=== PATIENT | female | born 1985 | race Caucasian/White ===

== ENCOUNTER 2019-07-04 13:01 | Emergency (ER) | payer OTHER ==
--- OUTSIDE RECORDS SUMMARY | 2019-07-04 14:13 | XMS REPORT | Continuity of Care Document ---
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 Social History Type Date Description Comments Sex Unknown Tobacco Use Start: Unknown Never Smoked Cigarettes Smoking Status Reviewed: 04/14/18 Never Smoked Cigarettes ETOH Use Occasionally consumes alcohol Tobacco Use Start: Unknown Patient has never smoked Recreational Drug Use Denies Drug Use Exercise Type/Frequency Lifts weights 5 times a week Allergies, Adverse Reactions, Alerts Active Allergies Reaction Severity Comments Date Garlic Preparation Abdominal pain Severe 05/03/2019 Wheat Gluten Extract 05/03/2019 Inactive Allergies NKDA 04/13/2018 Medications Active Medications SIG Qnty Indications Ordering Provider Date Progesterone Micronized 1 by mouth Unknown 200mg daily Capsules Probiotic Unknown 90Billion Iu Capsules Vitamin B-Complex 1 by mouth Unknown 400 Tablets every day Vitamin D Unknown (Ergocalciferol) 5000Unit Capsules Magnesium Oxide -MG 1 by mouth Unknown Supplement every day 900mg Tablets Ibuprofen as needed Unknown 200mg Capsules Methylphenidate Gisell Wolff MD Hydrochloride ER 18mg Tablets ER 24HR Medications Administered in Office Medication SIG Qnty Indications Ordering Provider Date HPV,Unspecified Unknown 10/26/2007 Injection HPV,Unspecified Unknown 12/15/2006 Injection HPV,Unspecified Unknown 10/04/2006 Injection Meningococcal,Unspecified Unknown 10/30/2002 Injection Immunizations CPT Code Status Date Vaccine Lot # [id number] Given 03/14/2019 Influenza Virus Vaccine, Quadrivalent, Split, Preservative Free 25734 Given 10/27/2017 Tdap - Tetanus/Diptheria/Acellular Pertussis 97729 Given 06/03/2009 Flu Vaccine 73641 Given 06/03/2009 Administration Swine Flu Shot 92925 Given 10/04/2006 Hepatitis A Vaccine Adult Dosage 77005 Given 12/11/2005 Tdap - Tetanus/Diptheria/Acellular Pertussis 10722 Given 04/22/2005 Flu Vaccine 03067 Given 01/10/1999 Hep B Pediatric/Adolescent 17739 Given 03/20/1997 Hep B Pediatric/Adolescent 05874 Given 12/29/1996 Hep B Pediatric/Adolescent 72450 Given 11/24/1989 Measles Mumps And Rubella MMR 57298 Given 05/03/1987 Varicella (Chicken Pox) Immunization 08223 Given 05/29/1986 Hemophilus Influenza B 85434 Given 01/23/1986 Measles Mumps And Rubella MMR Vital Signs Date Vital Result Comment 05/17/2019 3:07pm Height 67 inches 5'7" Weight 141.25 lb Heart Rate 56 /min BP Systolic 125 mmHg BP Diastolic 78 mmHg Body Temperature 97.7 F O2 % BldC Oximetry 100 % BMI (Body Mass Index) 22.1 kg/m2 01/23/2019 12:00am Height 67 inches Weight 140.00 lb BMI (Body Mass Index) 21.9 kg/m2 Results Test Acquired Date Facility Test Result H/L Range Note GC/chlamydi 01/24/2019 N2N/CCD Import chlamydia negative negative a Rna trachomatis [facility] neisseria gonorrhoeae (GC) [facility] negative negative Homocysteine 01/23/2019 N2N/CCD Import homocysteine 7 mcmol/L [Mass/volume] in Serum or Plasma 25-Hydroxyvitamin D 01/20/2019 N2N/CCD Import vitamin D total > 120.0 High 20-50 [Mass/volume] in 25(oh) Serum or Plas Cobalamin (Vitamin 01/20/2019 N2N/CCD Import vitamin B12 645 pg/mL 180- 91 B12) [Mass/volume] 4 in Blood Comprehensive 01/20/2019 N2N/CCD Import sodium 140 mmol/L 135-14 metabolic 2000 5 panel - Serum or Plas potassium 4.5 mmol/L 3.5-5.0 chloride 108 mmol/L 101-111 Co2 carbon dioxide 28 mmol/L 22-32 anion gap 4 mmol/L 2-11 glucose 91 mg/dL 70-100 blood urea nitrogen 12 mg/dL 6-24 creatinine 0.94 mg/dL 0.51-0.95 BUN/creatinine ratio 12.8 8-20 calcium 9.0 mg/dL 8.6-10.3 total protein 6.3 g/dL Low 6.4-8.9 albumin 4.0 g/dL 3.2-5.2 globulin 2.3 g/dL 2-4 albumin/globulin ratio 1.7 1-3 total bilirubin 0.70 mg/dL 0.2-1.0 alkaline phosphatase 52 U/L 34-104 Alt 19 U/L 7-52 Ast 23 U/L 13-39 eGFR non- 68.2 >60 eGFR 82.5 >60 Lipid 1996 panel - Serum or 01/20/2019 N2N/CCD Import triglycerides 62 mg/ dL Plasma cholesterol 167 mg/dL HDL cholesterol 67.5 mg/dL Cholesterol in LDL [Mass/volume] in Serum or Plasma 87 mg/dL CBC W Auto 01/20/2019 N2N/CCD Import white blood 4.1 10_3/uL 3.5-10.8 Differential panel - count Blood red blood count 4.31 10_6_/uL 3.70-4.87 hemoglobin 13.2 g/dL 12.0-16.0 hematocrit 39 % 35-47 mean corpuscular volume 91 fL 80-97 mean corpuscular hemoglobin 31 pg 27-31 mean corpuscular HGB conc 34 g/dL 31-36 red cell distribution width 13 % 10-15 platelet count 166 10_3/uL 150-450 mean platelet volume 10.7 fL High 7.4-10.4 abs neutrophils 1.6 10_3/uL 1.5-7.7 abs lymphocytes 1.9 10_3/uL 1.0-4.8 abs monocytes 0.5 10_3/uL 0-0.8 abs eosinophils 0.1 10_3/uL 0-0.6 abs basophils 0.0 10_3/uL 0-0.2 abs nucleated RBC 0.0 10_3/uL granulocyte % 39.1 % lymphocyte % 45.4 % monocyte % 11.2 % eosinophil % 3.2 % basophil % 1.1 % nucleated red blood cells % 0.1 GC/chlamydia Rna 11/22/2018 N2N/CCD Import chlamydia positive Abnormal negative trachomatis Rna neisseria gonorrhoeae (GC) Rna negative negative Trichomonas 11/22/2018 N2N/CCD Import trichomonas negative negative vaginalis rRNA vaginalis result [Presence] in Unspecifi Procedures Description No Information Available Medical Devices Description No Information Available Encounters Description No Information Available Assessments Description No Information Available Plan of Treatment No Information Available Functional Status Description No Information Available Mental Status Description No Information Available Referrals Description No Information Available
[2019-07-04 14:23] VITALS: BP 118/81
--- NOTE | 2019-07-04 14:26 | UC ---
FLU HPI - HPI Summary HPI Summary: 33 yo female presents with flu-like symptoms. She tells me that for the past 4 days she has felt nauseous with a decreased appetite. For the last 2 days has had subjective fever, fatigue, body aches, and dry cough. She has not been taking anything OTC for her symptoms. 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 Denies rash, SOB, chest pain, abdominal pain, vomiting, diarrhea, dysuria. - History of Current Complaint Chief Complaint: UCGeneralIllness Stated Complaint: BODYACHES FEVER NAUSEA HEADACHE Time Seen by Provider: 07/04/19 14:25 Hx Obtained From: Patient Hx Last Menstrual Period: Onset/Duration: Sudden Onset Severity Currently: Moderate Severity Initially: Moderate Pain Intensity: 5 Pain Scale Used: 0-10 Numeric - Allergy/Home Medications Allergies/Adverse Reactions: Allergies Allergy/AdvReac Type Severity Reaction Status Date / Time No Known Allergies Allergy Verified 07/04/19 14:23 Home Medications: Home Medications Methylphenidate TAB* [Ritalin TAB*] 10 mg PO DAILY 07/04/19 [History Confirmed 07/04/19] Progesterone, Micronized [Progesterone] 200 mg PO DAILY 07/04/19 [History Confirmed 07/04/19] PMH/Surg Hx/FS Hx/Imm Hx - Additional Past Medical History Additional PMH: ADHD - Surgical History Surgical History: None - Family History Known Family History: Positive: Hypertension - Social History Lives: With Family Alcohol Use: Weekly Substance Use Type: None Smoking Status (MU): Never Smoked Tobacco Review of Systems All Other Systems Reviewed And Are Negative: No Constitutional: Positive: Fever, Chills, Fatigue, Other - Body aches Skin: Positive: Negative Eyes: Positive: Negative ENT: Positive: Negative Respiratory: Positive: Cough Cardiovascular: Positive: Negative Gastrointestinal: Positive: Nausea Genitourinary: Positive: Negative Neurological/Mental Status: Positive: Negative Psychological: Positive: Negative Physical Exam - Summary Physical Exam Summary: GENERAL: NAD. WDWN. No pain distress. SKIN: No rashes, sores, lesions, or open wounds. HEENT: Head: AT/NC Eyes: EOM intact. Conjunctiva clear without inflammation or discharge. Ears: Hearing grossly normal. TMs intact, no bulging, erythema, or edema. Nose: Nasal mucosa pink and moist. NTTP maxillary and frontal sinus. Throat: Posterior oropharynx without exudates, erythema, or tonsillar enlargement. Uvula midline. NECK: Supple. Nontender. No lymphadenopathy. CHEST: CTAB. No r/r/w. No accessory muscle use. Breathing comfortably and in no distress. CV: RRR. Pulses intact. Cap refill <2seconds ABDOMEN: Soft. NTTP. Bowel sounds present NEURO: Alert. PSYCH: Age appropriate behavior. Triage Information Reviewed: Yes Vital Signs: Initial Vital Signs Temp 98.2 F 07/04/19 14:18 Pulse 113 07/04/19 14:18 Resp 18 07/04/19 14:18 BP 118/81 07/04/19 14:18 Pulse Ox 100 07/04/19 14:18 Laboratory Tests 07/04/19 14:42 Influenza A (Rapid) Negative Influenza B (Rapid) Negative Vital Signs Reviewed: Yes Flu Course/Dx - Course Course Of Treatment: POC flu negative. Discussed doing further investigation such as CXR, UA, labwork - but pt declined and prefers to continue supportive care and will be rechecked if her symptoms worsen or do not improve. - Differential Dx/Diagnosis Provider Diagnosis: Viral syndrome Discharge ED - Sign-Out/Discharge Documenting (check all that apply): Patient Departure All imaging exams completed and their final reports reviewed: No Studies - Discharge Plan Condition: Stable Disposition: HOME Patient Education Materials: Viral Syndrome (ED) Referrals: Gisell Magaña MD [Primary Care Provider] - Additional Instructions: FLU TEST NEGATIVE TODAY Your symptoms are likely from a viral infection. Viral infections do not respond to antibiotics and are limited to the treatment of symptoms. Viral infections typically run their course in 7-10 days. Drink plenty of fluids, especially if you are running any fever. Use salt water gargles several times a day. Take over the counter acetaminophen (Tylenol) or ibuprofen (Advil, Motrin) according to directions as needed for pain or fever. You may also use Chloraseptic spray or Cepacol lonzenges according to directions which contain a numbing medication and can provide some temporary relief from a sore throat. Return here or follow up with your primary care provider in 7 days if symptoms persist. - Billing Disposition and Condition Condition: STABLE Disposition: Home
[2019-07-04 14:54] LABS: Influenza A Molecular Negative (Negative); Influenza B Molecular Negative (Negative)
== END 2019-07-04 15:05 | disposition home or self-care (01) ==
LOC: UCEAST 13:01
DX: B34.9 Viral infection, unspecified (principal); R11.0 Nausea; R63.8 Other symptoms and signs concerning food and fluid intake; R53.83 Other fatigue; R52 Pain, unspecified; R05 Cough
CPT/HCPCS: 99211; G0463